=== PATIENT | female | born 1980 | race Two or more races ===

== ENCOUNTER 2019-12-24 15:30 | Emergency (ER) | payer OTHER ==
--- NOTE | 2019-12-24 15:43 | PDOC ---
Rapid Medical Evaluation Time Seen by Provider: 12/24/19 15:38 Medical Evaluation: Allergies Allergy/AdvReac Type Severity Reaction Status Date / Time No Known Allergies Allergy Verified 12/24/19 15:39 12/24/19 15:39 Pt c/o: urinary burning , fever, suprapubic pain, no vag bleeding Pt on brief exam:midsuprabic tenderness Pt ordered for: urine and ultrasound pt to proceed to the ED Discharge Disposition - Diagnosis Abdominal pain affecting , Viral URI - Discharge Dispostion Disposition: HOME Condition at time of disposition: Stable - Referrals - Patient Instructions Printed Discharge Instructions: DI for Viral Upper Respiratory Infection -- Adult, DI for Abdominal Pain -- Early Additional Instructions: Thank you for choosing [facility]. It was a pleasure taking care of you. Please return in 2 days for repeat blood work Take Tylenol every 4 hours as needed for fever Recommend rest and hydration Return to the Emergency Department if your symptoms worsen or persist or have other concerning symptoms. - Post Discharge Activity
[2019-12-24 15:45] VITALS: BMI 72.2
[2019-12-24] MEDS ORDERED: ACETAMINOPHEN 500 MG TABLET (FP) PO ONE (15:49)
[2019-12-24] MEDS ORDERED: ACETAMINOPHEN 325 MG TABLET (FP) ONE (15:59)
[2019-12-24 16:30] LABS: URINE APPEARANCE CLEAR; URINE BILIRUBIN NEGATIVE (NEGATIVE); URINE COLOR YELLOW; URINE GLUCOSE (UA) NEGATIVE (NEGATIVE); URINE KETONE TRACE (NEGATIVE); URINE LEUK ESTERASE NEGATIVE (NEGATIVE); URINE NITRITE NEGATIVE (NEGATIVE); URINE PROTEIN TRACE (NEGATIVE)
--- NOTE | 2019-12-24 18:29 | PDOC ---
History of Present Illness - General Chief Complaint: Urinary Problem Stated Complaint: 4WKS/UTI SYMPTOMS Time Seen by Provider: 12/24/19 15:38 History Source: Patient Exam Limitations: No Limitations Past History - Past Medical History Allergies/Adverse Reactions: Allergies Allergy/AdvReac Type Severity Reaction Status Date / Time No Known Allergies Allergy Verified 12/24/19 15:39 COPD: No Other medical history: lmp 11/06/19 - Psycho Social/Smoking Cessation Hx Smoking History: Never smoked Hx Alcohol Use: No Drug/Substance Use Hx: No *Physical Exam - Vital Signs Last Vital Signs Temp Pulse Resp BP Pulse Ox 100.1 F H 113 H 18 134/86 99 12/24/19 15:39 12/24/19 15:39 12/24/19 15:39 12/24/19 15:39 12/24/19 15:39 - Physical Exam General Appearance: No: Apparent Distress Respiratory/Chest: positive: Lungs Clear, Normal Breath Sounds. negative: Respiratory Distress Cardiovascular: positive: Regular Rhythm, Regular Rate, S1, S2. negative: Murmur Gastrointestinal/Abdominal: positive: Tender (mild suprapubic tenderness), Soft. negative: Distended, Guarding, Hernia, Mass Integumentary: positive: Normal Color Neurologic: positive: Alert ED Treatment Course - ADDITIONAL ORDERS Additional order review: Laboratory Results 12/24/19 12/24/19 15:49 15:49 Urine Color Yellow Urine Appearance Clear Urine pH 6.0 Ur Specific [place] 1.028 Urine Protein Trace Urine Glucose (UA) Negative Urine Ketones Trace H Urine Blood Negative Urine Nitrite Negative Urine Bilirubin Negative Urine Urobilinogen 1.0 Ur Leukocyte Esterase Negative Urine HCG, Qual Positive - Medications Given in the ED: ED Medications Discontinued Medications Generic Name Dose Route Start Last Admin Trade Name Freq PRN Reason Stop Dose Admin Acetaminophen 975 mg 12/24/19 15:49 12/24/19 16:01 Tylenol - PO 12/24/19 15:50 975 mg ONCE ONE Administration Medical Decision Making - Medical Decision Making 39 y/o F currently , LNMP 11/06/19, prsents with suprapubic pain, dysuria from yesterday. Also mentions subjective fever and body aches today. States she did have some URI sxs including cough, congestion and rhinorrhea x 2 weeks but the subjective fever began today. Has not yet had her care for her . Denies sob, cp, n/v/d, vaginal bleeding, hematuria. UA negative Given Tylenol for low grade fever Flu negative Pending results of TVUS 12/24/19 18:15 TVUS shows evidence of IUP 6 weeks No cardiac activity noted Will check Bhcg 12/24/19 18:36 Bhcg is low given patient is 6 weeks Possibly having miscarriage? Will have patient return to ED in 2 days for repeat blood work D/W Dr. Calvo 12/24/19 20:22 Discharge - Discharge Information Problems reviewed: Yes Clinical Impression/Diagnosis: Abdominal pain affecting , Viral URI Condition: Stable Disposition: HOME - Admission No - Additional Discharge Information Prescription Drug Monitoring Program (I-STOP) results: I-STOP not reviewed - Follow up/Referral - Patient Discharge Instructions Patient Printed Discharge Instructions: DI for Abdominal Pain -- Early , DI for Viral Upper Respiratory Infection -- Adult Additional Instructions: Thank you for choosing [facility]. It was a pleasure taking care of you. Please return in 2 days for repeat blood work Take Tylenol every 4 hours as needed for fever Recommend rest and hydration Return to the Emergency Department if your symptoms worsen or persist or have other concerning symptoms. - Post Discharge Activity
[2019-12-24 19:24] VITALS: BP 125/82; PULSE 102; TEMP 98.6
== END 2019-12-24 20:34 | disposition home or self-care (01) ==
LOC: JERFT 15:30 → JER 15:30
DX: O26.891 Other specified pregnancy related conditions, first trimester (principal); R10.30 Lower abdominal pain, unspecified; J06.9 Acute upper respiratory infection, unspecified; Z3A.01 Less than 8 weeks gestation of pregnancy
CPT/HCPCS: 36415; 76817-TC; 81003; 84702; 84703; 87086; 87804; 99282-25

== ENCOUNTER 2019-12-25 01:43 | Emergency (ER) | payer OTHER ==
[2019-12-25 02:33] VITALS: BMI 33.8
--- NOTE | 2019-12-25 05:11 | PDOC ---
History of Present Illness - General Chief Complaint: Vaginal Bleeding Stated Complaint: BLEEDING (6WKS ) Time Seen by Provider: 12/25/19 05:03 History Source: Patient Exam Limitations: No Limitations, Language Barrier - History of Present Illness Initial Comments: Hx limited bc patient speaks yemeni - [email or web address] performance improvement director #[id number] used for translation Allison Ruiz is a 39 yo obese F who denies having any pmh who presents bc she is 6 weeks hip is hurting and she is having alot of bleeding. the pain is in the middle of her lower abdomen. The bleeding began around 1 am. She was seen in the ER earlier tonight and discharged. She now returns because of increased bleeding. She was told yesterday if she starts to bleed she should come back to the ER even if it is a little bit. Her pain is an 8/10 right now. "Sometimes she feels like she has a fever or temperature and it is at the same time when her pain hurts the most". The primary reason for admission now is her pain and it is not going away. She also endorses a runny nose and a cough. - is not taking pre- vitamins bc she only found out she is on the . LMP: Nov 06 PCP: None OB: Follows at [facility] PSH: None reported Allergies: NKA, NKDA Social Hx: Denies smoking, drinking, or other drug usage. Past History - Past Medical History Allergies/Adverse Reactions: Allergies Allergy/AdvReac Type Severity Reaction Status Date / Time No Known Allergies Allergy Verified 12/25/19 02:31 Home Medications: Ambulatory Orders NK [No Known Home Medication] 12/25/19 COPD: No - Reproductive History (#): 4 Para: 3 Therapeutic (s) & number: No - Psycho Social/Smoking Cessation Hx Smoking History: Never smoked Have you smoked in the past 12 months: No Information on smoking cessation initiated: No Hx Alcohol Use: No Drug/Substance Use Hx: No Review of Systems - Review of Systems Able to Perform ROS?: Yes Comments:: CONSTITUTIONAL: Present: fever, chills Absent: no fatigue EYES: Absent: visual changes ENT: Absent: ear pain, no sore throat CARDIOVASCULAR: Absent: chest pain, no palpitations RESPIRATORY: Absent: cough, no SOB GI: Present: Abdominal pain, nausea, vomiting Absent: no constipation, no diarrhea GENITOURINARY: Present: Hematuria Absent: dysuria, no frequency MUSKULOSKELETAL: Present: Myalgia Absent: back pain, no arthralgia SKIN: Absent: rash NEURO: Absent: headache *Physical Exam - Vital Signs Last Vital Signs Temp Pulse Resp BP Pulse Ox 98.2 F 118 H 22 H 123/72 97 12/25/19 02:00 12/25/19 02:00 12/25/19 02:00 12/25/19 02:00 12/25/19 02:00 - Physical Exam GENERAL: The patient feels warm. Well-appearing, well-nourished. moderate distress. HEENT: Normocephalic, atraumatic. PERRL, EOM intact. CARDIOVASCULAR: Tachycardic rate. Normal S1, S2. Regular rhythm. PULMONARY: No evidence of respiratory distress. Lungs clear to auscultation bilaterally. No wheezing, rales or rhonchi. ABDOMEN: There is suprapubic TTP. Soft, non-distended. PELVIC: The vaginal vault has scant blood. The cervix is closed. There are no clots in the vault. There is no CMT and no adnexal TTP. There are no external or internal lesions or lacerations. EXTREMITIES: Normal ROM in all four extremities. No gross deformities. SKIN: Hot, dry. No rash NEUROLOGICAL: No focal neurological deficits. ED Treatment Course - LABORATORY CBC & Chemistry Diagram: 12/25/19 05:40 12/25/19 05:40 Medical Decision Making - Medical Decision Making 39 yo F presents to the ER after being discharged yesterday for lower abdominal pain associated with vaginal bleeding concerned she is having a miscarriage. She states the primary reason she has presented is because she cannot take the abdominal pain. Vital Signs Temp Pulse Resp BP Pulse Ox 98.2 F 118 H 22 H 123/72 97 12/25/19 02:00 12/25/19 02:00 12/25/19 02:00 12/25/19 02:00 12/25/19 02:00 DDx IBNLT: inevitable , partial , incomplete , septic , electrolyte/metabolic disturbance, anemia - TVUS from earlier this evening showed an IUP consistent with 6 weeks by date without a heart rate. Plan: Labs, T&S, analgesia, IV hydration, re-assess. Disposition: signing out patient to Dr. Cantor for further ED care including follow up on lab tests, possible need for Rhogam and final ED disposition. Discharge - Discharge Information Problems reviewed: Yes Clinical Impression/Diagnosis: Vaginal bleeding before 22 weeks gestation, Hyperglycemia in Condition: Good Disposition: HOME - Admission No - Follow up/Referral - Patient Discharge Instructions Patient Printed Discharge Instructions: 'Diet Plate' May Help People With Diabetes Lose Weight, Gestational Diabetes Additional Instructions: Hoy la vieron por sangrado vaginal en las primeras seis semanas de embarazo. Kayleen pruebas de laboratorio fueron normales, aparte de jorgensen nivel de azcar en la vinod, que era alto. [place] es algo que necesita joanna a un OBGYN para obtener ms ayuda en los prximos 2-3 patrick. Todos los resultados de hoy estn incluidos en shira paquete. Tmelo para que jorgensen mdico pueda revisarlos. Llame a la [facility] [address] [facility] por la maana para programar faustino ingrid urgente. Dgale a la oficina que lo vieron en el departamento de emergencias y que jorgensen nivel de azcar en la vinod estaba por encima de 200. He adjuntado un paquete de informacin sobre el nivel elevado de azcar en la vinod marycruz el embarazo. Asegrate de leerlo. Mantngase aguilar hidratado marycruz los prximos patrick. Regrese al departamento de emergencias por sntomas nuevos o que empeoren. You were seen today for vaginal bleeding in the first six weeks of your . Your lab tests were normal aside from your blood sugar, which was high. This is something you need to see an OBGYN for further help in the next 2- 3 days. All of todays results are included in this packet it. Take it so your doctor can review them. Please call the [address] [facility] on Friday morning to schedule an urgent appointment. Tell the office you were seen in the emergency department and your blood sugar was over 200. I have attached a packet of information about elevated blood sugar in . Be sure to read through it. Stay well hydrated for the next several days. Return to the emergency department for new or worsening symptoms. Print Language: SYRIAC - Post Discharge Activity Work/Back to School Note: Back to Work
--- NOTE | 2019-12-25 05:15 | PDOC ---
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 Pt doesn;t know her blood type. - Physicial Exam PE: 12/25/19 06:25 Febrile to touch Heart S1`S2 tachy Lungs CTA B Abd soft NT ND + BS ext: no C/C/E no flank pain - Medical Decision Making 12/25/19 06:36 Pt was just here several hours ago; at that time sono showed 6 week IUP and flu culture was negative SHe has cough and Bright red vag bleeding. 12/25/19 06:48 Pt will be signed out to the AM ER team. They will check the blood type and make sure RH is positive and patient doesn't need RHOGAM
[2019-12-25] MEDS ORDERED: ACETAMINOPHEN 1000 MG/100 ML VIAL (NON FORMULARY) IVPB ONE (05:20)
[2019-12-25] MEDS ORDERED: SODIUM CHLORIDE 1,000 ML IV STA (05:20)
[2019-12-25] MEDS ORDERED: ONDANSETRON 4 MG/2 ML VIAL IVPUSH ONE (05:20)
[2019-12-25] MEDS ORDERED: ONDANSETRON 4 MG/2 ML VIAL ONE (05:32)
[2019-12-25] MEDS ORDERED: ACETAMINOPHEN INJECTION 100 ML IVPB ONE (05:32)
[2019-12-25] MEDS ORDERED: morphine CARPU-JECT 2 MG/1 ML DISP.SYRIN IVPUSH ONE (06:23)
[2019-12-25] MEDS ORDERED: LACTATED RINGERS SOLUTION 1000 ML INFUS.BAG IV ONE (06:26)
[2019-12-25] MEDS ORDERED: MORPHINE SULFATE 2 MG/ML VIAL ONE (06:31)
[2019-12-25 06:51] LABS: BASO % 0.9 % (0-2.0); EOS % 1.1 % (0-4.5); HEMATOCRIT 30.6 % (32.4-45.2); HEMOGLOBIN 9.7 GM/dL (10.7-15.3); MCHC 31.5 g/dl (32.0-36.0); MEAN CELL VOLUME 61.5 fl (80-96); MEAN PLT VOLUME 9.7 fl (7.5-11.1); MONO % 9.6 % (3.8-10.2); NEUT % 78.4 % (42.8-82.8); PLATELET COUNT 214 K/MM3 (134-434); RBC 4.98 M/mm3 (3.60-5.2); RDW 16.5 % (11.6-15.6); WHITE BLOOD COUNT 4.3 K/mm3 (4.0-10.0)
[2019-12-25 07:00] LABS: MCH 19.4 pg (25.7-33.7)
[2019-12-25 07:02] LABS: INR 1.1 (0.83-1.09)
[2019-12-25 07:04] LABS: ACTIVATED PTT 27.4 SECONDS (25.2-36.5)
--- NOTE | 2019-12-25 07:09 | PDOC ---
*Physical Exam - Vital Signs Last Vital Signs Temp Pulse Resp BP Pulse Ox 98.6 F 100 H 18 118/82 97 12/25/19 06:51 12/25/19 06:51 12/25/19 06:51 12/25/19 06:51 12/25/19 06:51 - Physical Exam MDM: Received sign out from resident Dr. Mensah. In short, pt is a 39 y/o female at estimated 6 weeks gestation presenting with vaginal bleeding. Second presentation overnight. TVUS revealed IUP without notable cardiac activity. Will f/u pending labs. Anticipate discharge home. Reviewed lab results. No indication for Rhogam. Noted elevated BGL. 25 Dec 2019 09:10 AM Pt reassessed. Reports no further bleeding or pain. Discussed physical exam findings, laboratory results, and ultrasound findings with pt. Answered all questions. Provided return precautions. pt expressed verbal understanding and agreement with plan to discharge home with outpatient follow up. Provided copies of todays results. Encouraged very close follow up with OBGYN for evaluation of blood glucose. Discharge instructions discussed using [employer] Test Engineer # [id number] ED Treatment Course - LABORATORY CBC & Chemistry Diagram: 12/25/19 05:40 12/25/19 05:40 - ADDITIONAL ORDERS Additional order review: Laboratory Results 12/25/19 05:40 PT with INR 13.00 INR 1.10 H PTT (Actin FS) 27.4 12/25/19 05:40 RBC 4.98 MCV 61.5 L MCHC 31.5 L RDW 16.5 H MPV 9.7 Neutrophils % 78.4 Lymphocytes % 10.0 Monocytes % 9.6 Eosinophils % 1.1 Basophils % 0.9 - Medications Given in the ED: ED Medications Discontinued Medications Generic Name Dose Route Start Last Admin Trade Name Freq PRN Reason Stop Dose Admin Acetaminophen 1,000 mg 12/25/19 05:20 12/25/19 05:50 Ofirmev Injection - IVPB 12/25/19 05:21 1,000 mg ONCE ONE Administration Sodium Chloride 1,000 mls @ 1,000 mls/hr 12/25/19 05:20 12/25/19 05:50 Normal Saline - IV 12/25/19 06:19 1,000 mls/hr ASDIR STA Administration Lactated Ringer's 1,000 ml 12/25/19 06:26 12/25/19 06:53 Lactated Ringers Solution IV 12/25/19 06:27 1,000 ml NOW ONE Administration Morphine Sulfate 2 mg 12/25/19 06:23 12/25/19 06:52 Morphine Injection - IVPUSH 12/25/19 06:24 2 mg ONCE ONE Administration Ondansetron HCl 4 mg 12/25/19 05:20 12/25/19 05:50 Zofran Injection IVPUSH 12/25/19 05:21 4 mg ONCE ONE Administration Discharge - Discharge Information Problems reviewed: Yes Clinical Impression/Diagnosis: Vaginal bleeding before 22 weeks gestation, Hyperglycemia in Condition: Good Disposition: HOME - Admission No - Follow up/Referral - Patient Discharge Instructions Patient Printed Discharge Instructions: 'Diet Plate' May Help People With Diabetes Lose Weight, Gestational Diabetes Additional Instructions: Hoy la vieron por sangrado vaginal en las primeras seis semanas de embarazo. Kayleen pruebas de laboratorio fueron normales, aparte de jorgensen nivel de azcar en la vinod, que era alto. [place] es algo que necesita joanna a un OBGYN para obtener ms ayuda en los prximos 2-3 patrick. Todos los resultados de hoy estn incluidos en shira paquete. Tmelo para que jorgensen mdico pueda revisarlos. Llame a la [facility] [address] el lunes por la maana para programar faustino ingrid urgente. Dgale a la oficina que lo vieron en el departamento de emergencias y que jorgensen nivel de azcar en la vinod estaba por encima de 200. He adjuntado un paquete de informacin sobre el nivel elevado de azcar en la vinod marycruz el embarazo. Asegrate de leerlo. Mantngase aguilar hidratado marycruz los prximos patrick. Regrese al departamento de emergencias por sntomas nuevos o que empeoren. You were seen today for vaginal bleeding in the first six weeks of your . Your lab tests were normal aside from your blood sugar, which was high. This is something you need to see an OBGYN for further help in the next 2- 3 days. All of todays results are included in this packet it. Take it so your doctor can review them. Please call the [address] [place] [address] on Friday morning to schedule an urgent appointment. Tell the office you were seen in the emergency department and your blood sugar was over 200. I have attached a packet of information about elevated blood sugar in . Be sure to read through it. Stay well hydrated for the next several days. Return to the emergency department for new or worsening symptoms. Print Language: NIGERIAN - Post Discharge Activity Work/Back to School Note: Back to Work
[2019-12-25 07:14] LABS: ALBUMIN 3.7 g/dl (3.4-5.0); BILIRUBIN,TOTAL 0.6 mg/dL (0.2-1); CALCIUM 8.6 mg/dL (8.5-10.1); CREATININE 0.5 mg/dL (0.55-1.3); POTASSIUM 3.5 mmol/L (3.5-5.1); TOT PROT 7.3 g/dl (6.4-8.2)
--- NOTE | 2019-12-25 07:23 | PDOC ---
*Physical Exam - Vital Signs Last Vital Signs Temp Pulse Resp BP Pulse Ox 98.6 F 100 H 18 118/82 97 12/25/19 06:51 12/25/19 06:51 12/25/19 06:51 12/25/19 06:51 12/25/19 06:51 - Physical Exam 12/25/19 07:18 Gen: sleeping, arousable abd: soft, nt/nd +bs ED Treatment Course - LABORATORY CBC & Chemistry Diagram: 12/25/19 05:40 12/25/19 05:40 - ADDITIONAL ORDERS Additional order review: Laboratory Results 12/25/19 12/25/19 12/25/19 05:40 05:40 05:40 WBC 4.3 RBC 4.98 Hgb 9.7 L Hct 30.6 L MCV 61.5 L MCH 19.4 L MCHC 31.5 L RDW 16.5 H Plt Count 214 MPV 9.7 Absolute Neuts (auto) 3.4 Neutrophils % 78.4 Lymphocytes % 10.0 Monocytes % 9.6 Eosinophils % 1.1 Basophils % 0.9 Nucleated RBC % 0 PT with INR 13.00 INR 1.10 H PTT (Actin FS) 27.4 Sodium 136 Potassium 3.5 Chloride 105 Carbon Dioxide 24 Anion Gap 8 BUN 6.0 L Creatinine 0.5 L Est GFR (CKD-EPI)AfAm 143.30 Est GFR (CKD-EPI)NonAf 123.64 Random Glucose 209 H Calcium 8.6 Total Bilirubin 0.6 AST 23 ALT 34 Alkaline Phosphatase 88 Total Protein 7.3 Albumin 3.7 12/25/19 05:40 RBC 4.98 MCV 61.5 L MCHC 31.5 L RDW 16.5 H MPV 9.7 Neutrophils % 78.4 Lymphocytes % 10.0 Monocytes % 9.6 Eosinophils % 1.1 Basophils % 0.9 - Medications Given in the ED: ED Medications Discontinued Medications Generic Name Dose Route Start Last Admin Trade Name Freq PRN Reason Stop Dose Admin Acetaminophen 1,000 mg 12/25/19 05:20 12/25/19 05:50 Ofirmev Injection - IVPB 12/25/19 05:21 1,000 mg ONCE ONE Administration Sodium Chloride 1,000 mls @ 1,000 mls/hr 12/25/19 05:20 12/25/19 05:50 Normal Saline - IV 12/25/19 06:19 1,000 mls/hr ASDIR STA Administration Lactated Ringer's 1,000 ml 12/25/19 06:26 12/25/19 06:53 Lactated Ringers Solution IV 12/25/19 06:27 1,000 ml NOW ONE Administration Morphine Sulfate 2 mg 12/25/19 06:23 12/25/19 06:52 Morphine Injection - IVPUSH 12/25/19 06:24 2 mg ONCE ONE Administration Ondansetron HCl 4 mg 12/25/19 05:20 12/25/19 05:50 Zofran Injection IVPUSH 12/25/19 05:21 4 mg ONCE ONE Administration Medical Decision Making - Medical Decision Making 12/25/19 07:18 a/p: 39yo at 6 weeks gestation with vaginal bleeding-pt with URI symptoms, had flu swab yesterday, pt signed out pending labs -pt with IUP visualized on ultrasound yesterday -pt states bleeding has stopped at this time -pt with glu >200 -pending type and screen -will monitor and reassess 12/25/19 08:19 beta increased pending type and screen 12/25/19 08:42 pt is O+ 12/25/19 11:30 repeat glu 168 recommend diet control, oral hydration with water pt states she will see FLOW SPECIALIST on friday Discharge - Discharge Information Problems reviewed: Yes Clinical Impression/Diagnosis: Vaginal bleeding before 22 weeks gestation, Hyperglycemia in Condition: Good Disposition: HOME - Follow up/Referral - Patient Discharge Instructions Patient Printed Discharge Instructions: 'Diet Plate' May Help People With Diabetes Lose Weight, Gestational Diabetes Additional Instructions: Hoy la vieron por sangrado vaginal en las primeras seis semanas de embarazo. Kayleen pruebas de laboratorio fueron normales, aparte de jorgensen nivel de azcar en la vinod, que era alto. [place] es algo que necesita joanna a un OBGYN para obtener ms ayuda en los prximos 2-3 patrick. Todos los resultados de hoy estn incluidos en shira paquete. Tmelo para que jorgensen mdico pueda revisarlos. Llame a la [facility] [address] el lunes por la maana para programar faustino ingrid urgente. Dgale a la oficina que lo vieron en el departamento de emergencias y que jorgensen nivel de azcar en la vinod estaba por encima de 200. He adjuntado un paquete de informacin sobre el nivel elevado de azcar en la vinod marycruz el embarazo. Asegrate de leerlo. Mantngase aguilar hidratado marycruz los prximos patrick. Regrese al departamento de emergencias por sntomas nuevos o que empeoren. You were seen today for vaginal bleeding in the first six weeks of your . Your lab tests were normal aside from your blood sugar, which was high. This is something you need to see an OBGYN for further help in the next 2- 3 days. All of todays results are included in this packet it. Take it so your doctor can review them. Please call the [address] [place] [address] Clinic on Friday morning to schedule an urgent appointment. Tell the office you were seen in the emergency department and your blood sugar was over 200. I have attached a packet of information about elevated blood sugar in . Be sure to read through it. Stay well hydrated for the next several days. Return to the emergency department for new or worsening symptoms. Print Language: AUSTRIAN - Post Discharge Activity Work/Back to School Note: Back to Work
[2019-12-25 09:26] VITALS: BP 116/72; PULSE 89; TEMP 98.2
[2019-12-25 14:14] LABS: ANISOCYTOSIS 1+; MACROCYTOSIS 0; OVALOCYTE 1+; PLATELET ESTIMATE NORMAL; TEAR DROP CELLS 1+
== END 2019-12-25 09:33 | disposition home or self-care (01) ==
LOC: JER 01:43
PROC: 3E033NZ Introduction of Analgesics, Hypnotics, Sedatives into Peripheral Vein, Percutaneous Approach (ICD-10-PCS; principal; 2019-12-25)
PROC: 3E033NZ Introduction of Analgesics, Hypnotics, Sedatives into Peripheral Vein, Percutaneous Approach (ICD-10-PCS; 2019-12-25)
PROC: 3E033GC Introduction of Other Therapeutic Substance into Peripheral Vein, Percutaneous Approach (ICD-10-PCS; 2019-12-25)
DX: O26.891 Other specified pregnancy related conditions, first trimester (principal); O20.8 Other hemorrhage in early pregnancy; R73.9 Hyperglycemia, unspecified; Z3A.01 Less than 8 weeks gestation of pregnancy
CPT/HCPCS: 36415; 80053; 82962; 84702; 85025; 85610; 85730; 86850; 86900; 86901; 96374; 96375; 99283-25; J0131; J7030

== ENCOUNTER 2022-06-26 08:57 | Inpatient (IN) | payer OTHER ==
[2022-06-26] MEDS: ELECTROLYTE-148 SOLN 1,000 ML IV SCH ×2 (09:30→23:15)
[2022-06-26] MEDS ORDERED: DINOPROSTONE 10 MG VAGINAL SUPPOSITORY VG STA (10:45)
[2022-06-26 12:07] VITALS: BMI 31.8
[2022-06-26] MEDS ORDERED: BUTORPHANOL TARTRATE 2 MG/ML VIAL IVPB ONE (21:00)
[2022-06-26] MEDS ORDERED: OXYTOCIN 30 UNITS in 0.9% NS 30 UNIT/500 ML INFUS.BAG IVPB SCH (21:00)
[2022-06-26] MEDS ORDERED: PROMETHAZINE HCL 25 MG/1 ML VIAL IVPB ONE (21:00)
[2022-06-26] MEDS ORDERED: OXYTOCIN 30 UNITS in 0.9% NS 30 UNIT/500 ML INFUS.BAG IVPB ONE (22:55)
[2022-06-26] MEDS ORDERED: PROMETHAZINE HCL 25 MG/1 ML VIAL ONE (22:55)
[2022-06-26] MEDS ORDERED: BUTORPHANOL TARTRATE 2 MG/ML VIAL ONE (22:55)
[2022-06-27] MEDS ORDERED: LIDOCAINE HCL 1% PRESERVATIVE FREE - 30ML VIAL ONE (01:30)
[2022-06-27] MEDS ORDERED: BENZOCAINE 28 GM HEMORRHOIDAL OINTMENT TP PRN (03:14)
[2022-06-27] MEDS ORDERED: WITCH HAZEL 50% (TUCKS) 40 PAD/JAR PAD TP PRN (03:14)
[2022-06-27] MEDS ORDERED: BISACODYL 10 MG SUPP.RECT RC PRN (03:14)
[2022-06-27] MEDS ORDERED: ACETAMINOPHEN 325 MG TABLET (FP) PO PRN (03:14)
[2022-06-27] MEDS ORDERED: BENZOCAINE 20% 57 GM BOTTLE TP PRN (03:14)
[2022-06-27] MEDS ORDERED: METHYLERGONOVINE MALEATE 0.2 MG/1 ML AMP IM PRN (03:14)
[2022-06-27] MEDS ORDERED: OXYTOCIN 20 UNITS in 0.9% NS 20 UNIT/1,000 ML INFUS.BAG IV SCH (03:15)
[2022-06-27] MEDS: metFORMIN HCL 500 MG TABLET (FP) PO SCH ×2 (07:19→17:45)
[2022-06-27] MEDS: IBUPROFEN 600 MG TABLET (FP) PO PRN (10:10)
[2022-06-27] MEDS: PRENATAL VITAMINS W/ FOLIC ACID TABLET (FP) PO SCH (10:10)
[2022-06-27 18:36] VITALS: RESP 18
[2022-06-28] MEDS: metFORMIN HCL 500 MG TABLET (FP) PO SCH ×2 (06:19→17:19)
[2022-06-28] MEDS: IBUPROFEN 600 MG TABLET (FP) PO PRN ×2 (08:13→20:36)
[2022-06-28 09:22] LABS: BASO % 0.6 % (0-2.0); HEMATOCRIT 31.7 % (32.4-45.2); HEMOGLOBIN 10.6 GM/dL (10.7-15.3); LYMPH % 20.6 % (8-40); MCH 25.9 pg (25.7-33.7); MCHC 33.3 g/dl (32.0-36.0); MEAN CELL VOLUME 77.7 fl (80-96); MONO % 7.2 % (3.8-10.2); NEUT % 67.6 % (42.8-82.8); PLATELET COUNT 211 10^3/uL (134-434); RBC 4.07 M/mm3 (3.60-5.2); RDW 14.7 % (11.6-15.6); WHITE BLOOD COUNT 8.9 K/mm3 (4.0-10.0)
[2022-06-28] MEDS: PRENATAL VITAMINS W/ FOLIC ACID TABLET (FP) PO SCH (10:01)
[2022-06-28] MEDS ORDERED: SENNOSIDES/DOCUSATE COMBO (SENNA PLUS) TABLET (UD) PO PRN (22:00)
[2022-06-29] MEDS: metFORMIN HCL 500 MG TABLET (FP) PO SCH (06:19)
[2022-06-29] MEDS: IBUPROFEN 600 MG TABLET (FP) PO PRN (06:21)
[2022-06-29] MEDS: PRENATAL VITAMINS W/ FOLIC ACID TABLET (FP) PO SCH (09:26)
[2022-06-29 09:34] VITALS: BP 134/85; PULSE 68; TEMP 99.1
== END 2022-06-29 16:30 | disposition home or self-care (01) | DRG 560 ==
LOC: JLDR 08:57 → J3W 06-27 04:52
PROVIDERS: ADMIT Obstetrics & Gynecology; ATTEND Obstetrics & Gynecology
PROC: 3E0P7VZ Introduction of Hormone into Female Reproductive, Via Natural or Artificial Opening (ICD-10-PCS; 2022-06-26)
PROC: 10E0XZZ Delivery of Products of Conception, External Approach (ICD-10-PCS; principal; 2022-06-27)
PROC: 0HQ9XZZ Repair Perineum Skin, External Approach (ICD-10-PCS; 2022-06-27)
PROC: 0W8NXZZ Division of Female Perineum, External Approach (ICD-10-PCS; 2022-06-27)
DX: O70.0 First degree perineal laceration during delivery (principal); O24.92 Unspecified diabetes mellitus in childbirth; Z3A.38 38 weeks gestation of pregnancy; O99.214 Obesity complicating childbirth; Z37.0 Single live birth
CPT/HCPCS: 36415; 59409; 71046-TC-FY; 82962; 85025; 86780